=== PATIENT | female | born 1995 | race African-American/Black ===

== ENCOUNTER 2017-09-08 11:24 | Emergency (ER) | payer OTHER ==
[2017-09-08 11:43] VITALS: BP 147/72; PULSE 87; TEMP 97.6; BMI 24.1
--- NOTE | 2017-09-08 12:11 | PDOC ---
Attending Attestation - Resident Resident Name: KolbyEriberto - HPI HPI: 09/08/17 18:43 Pt presents to the ED complaining of facial droop that started yesterday. - Physicial Exam PE: 09/08/17 18:44 Agree with resident exam. Droop involves both left eye and left mouth, and is consistent with bells palsy. - Medical Decision Making 09/08/17 18:45 Pt presents to the ED complaining of facial droop consistent with bells palsy. Will treat with prednisone and acyclovir and discharge home.
--- NOTE | 2017-09-08 13:33 | PDOC ---
History of Present Illness - General Chief Complaint: CVA/TIA Stated Complaint: ALLERGIC RXN/ LT FACE NUMBNESS Time Seen by Provider: 09/08/17 11:52 - History of Present Illness Initial Comments: 09/08/17 13:27 22 yo F with no significant pmh who presents with left sided facial paralysis. Patient reports acute onset of L sided facial paralysis this AM. States that she is unable to close eye and raise left sided mouth. Reports aural fullness " pressure" sensation in left ear. Recently seen at PCP this past Monday and treated with ear drops. Ear progressively swollen and externally painful. Denies N/V, fevers/chills, ear discharge, lightheadedness, CARDOSO, GI complaints, dizziness, weakness, sensory changes, vision changes, SOB, cough, or upper resp complaints. States that she has not had these symptoms before. Denies recent traveling, tick bites, bug bites, camping, hiking. Past History - Past Medical History Allergies/Adverse Reactions: Allergies Allergy/AdvReac Type Severity Reaction Status Date / Time ciprofloxacin HCl AdvReac Intermediate Verified 09/08/17 11:40 [From Ciprodex] dexamethasone [From Ciprodex] AdvReac Intermediate Verified 09/08/17 11:40 Home Medications: Ambulatory Orders Polyvinyl Alcohol [Tears Again] 15 ml OP PRN PRN #1 drops 09/08/17 Prednisone [Deltasone] 20 mg PO TID 7 Days #21 tablet MDD 3 tab 09/08/17 Valacyclovir HCl [Valtrex -] 1,000 mg PO TID 7 Days #21 tablet MDD 3 tab COPD: No - Suicide/Smoking/Psychosocial Hx Smoking History: Never smoked Review of Systems - Review of Systems Comments:: 09/08/17 13:29 GENERAL/CONSTITUTIONAL: No fever or chills. No weakness. HEAD, EYES, EARS, NOSE AND THROAT: + L sided facial weakness, and L ear pain No change in vision. No ear discharge. No sore throat.- CARDIOVASCULAR: No chest pain or shortness of breath RESPIRATORY: No cough, wheezing, or hemoptysis. GASTROINTESTINAL: No nausea, vomiting, diarrhea or constipation. GENITOURINARY: No dysuria, frequency, or change in urination. MUSCULOSKELETAL: No joint or muscle swelling or pain. No neck or back pain. SKIN: No rash NEUROLOGIC: No headache, vertigo, loss of consciousness, or change in strength/ sensation. ENDOCRINE: No increased thirst. No abnormal weight change HEMATOLOGIC/LYMPHATIC: No anemia, easy bleeding, or history of blood clots. ALLERGIC/IMMUNOLOGIC: No hives or skin allergy. 1 *Physical Exam - Vital Signs Last Vital Signs Temp Pulse Resp BP Pulse Ox 97.6 F 87 19 147/72 100 09/08/17 11:40 09/08/17 11:40 09/08/17 11:40 09/08/17 11:40 09/08/17 11:40 - Physical Exam Comments: 09/08/17 13:29 GENERAL: Awake, alert, and fully oriented, in no acute distress HEAD:Left sided drooping of lateral oral commisure. No signs of trauma, normocephalic, atraumatic EYES: left sided ptosis present. PERRLA, EOMI, sclera anicteric, conjunctiva clear ENT: Swelling of left ear helix, fossa, external ear. Auricles normal inspection , hearing grossly normal, nares patent, oropharynx clear without exudates. Moist mucosa NECK: Normal ROM, supple, no lymphadenopathy, JVD, or masses LUNGS: No distress, speaks full sentences, clear to auscultation bilaterally HEART: Regular rate and rhythm, normal S1 and S2, no murmurs, rubs or gallops, peripheral pulses normal and equal bilaterally. ABDOMEN: Soft, nontender, normoactive bowel sounds. No guarding, no rebound. No masses EXTREMITIES : Normal inspection, Normal range of motion, no edema. No clubbing or cyanosis. NEUROLOGICAL: Left sided facial weakness. Normal sensation to pinprick. Cranial nerves II through XII grossly intact. Normal speech, normal gait, no focal sensorimotor deficits. Absent dysmetria on FTN. Normal HTS. Normal ELIEL. SKIN: Warm, Dry, normal turgor, no rashes or lesions noted. Medical Decision Making - Medical Decision Making 09/08/17 18:27 22 yo F with no significant pmh who presents with acute onset of L sided facial paralysis this AM. Unable to close left eye and raise left sided mouth. Reports aural fullness " pressure" sensation in left ear for 1 week. Recently evaluated at PCP this past Monday and treated with ear drops. Ear progressively swollen and externally painful. Denies N/V, fevers/chills, ear discharge, lightheadedness, CARDOSO, GI complaints, dizziness, weakness, sensory changes, vision changes, SOB, cough, or upper resp complaints. States that she has not had these symptoms before. Denies recent traveling, tick bites, bug bites, camping, hiking. Physical exam reveals left sided ptosis and left sided soft tissue swellign of ear with no visible vesicles in outer ear. No s/s of AOM. Absent neuro deficits. Patient presentation consistent with bells palsy. 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 CVA/TIA unlikely, pt is young with low risk factors and no evidence of focal neuro deficits. ED Course: 09/08/17 18:30 Sent Valacyclovir, Prednisone, and Polyvinyl tears to pharmacy. 09/08/17 18:33 Patient is stable and ready for discharge. Will f/u outpatient with PCP in 1 week. Discussed avoiding eye irritation and frequent lubrication with drops. *DC/Admit/Observation/Transfer Diagnosis at time of Disposition: Wise's palsy - Discharge Dispostion Disposition: HOME Condition at time of disposition: Stable Admit: No - Prescriptions Prescriptions: Polyvinyl Alcohol [Tears Again] 15 ml OP PRN PRN #1 drops PRN Reason: Pain Prednisone [Deltasone] 20 mg PO TID 7 Days #21 tablet MDD 3 tab Valacyclovir HCl [Valtrex -] 1,000 mg PO TID 7 Days #21 tablet MDD 3 tab - Referrals - Patient Instructions Printed Discharge Instructions: DI for Wise's Palsy, Wise's Palsy (Alternative Therapy) Additional Instructions: Please return to the emergency department with any new or worsening symptoms or concerns. Please take medication as prescribed. - Post Discharge Activity Forms/Work/School Notes: Back to Work - Attestations Physician Attestion: 09/08/17 13:32 I attest to the documentation in this note.
== END 2017-09-08 13:47 | disposition home or self-care (01) ==
LOC: JER 11:24
DX: G51.0 Bell's palsy (principal)
CPT/HCPCS: 99282-25

== ENCOUNTER 2019-06-09 20:59 | Emergency (ER) | payer OTHER ==
[2019-06-09 21:11] VITALS: TEMP 98.2; BMI 24.5
[2019-06-09] MEDS ORDERED: ACETAMINOPHEN 1000 MG/100 ML VIAL (NON FORMULARY) IVPB ONE (21:32)
[2019-06-09] MEDS ORDERED: SODIUM CHLORIDE 1,000 ML IV STA (21:32)
--- NOTE | 2019-06-09 21:32 | PDOC ---
History of Present Illness - General Chief Complaint: Vomiting/Diarrhea Stated Complaint: G.I.UPSET Time Seen by Provider: 06/09/19 21:32 History Source: Patient Exam Limitations: No Limitations - History of Present Illness Initial Comments: 23 year old female with PMH menorrhhagia presented to ED with mother for nausea , vomiting, diarrhea, generalized abdominal pain since this AM. Pt returned from a trip to [facility] x7 days ago. Pt denied blood in stool/ vomit/urine, dysuria, flank pain, chest pain, cough, shortness of breath, rhinorrhea, sore throat. Pt stated she has been unable to tolerate PO today, but she took Tylenol around 1300, ibuprofen before that, and zofran that she usually uses for her menorrhagia without relief of symptoms. ROS General: admitted to generalized weakness. denied fever, chills. HEENT: denied sore throat, rhinorrhea, ear pain. Cardiovascular: denied chest pain, palpitations, syncope, diaphoresis. Respiratory: denied shortness of breath, cough, sputum production, hemoptysis. Gastrointestinal: admitted to abdominal pain, nausea, vomiting, diarrhea. denied constipation, blood in stool. Genitourinary: denied dysuria, increased urinary frequency, hematuria, urinary incontinence, flank pain. Back: denied back pain. Musculoskeletal: denied joint pain, muscle pain, joint swelling. Neurological: denied headache, dizziness, numbness, tingling, weakness. Integumentary: denied rash, laceration, abrasion. Hematologic/Lymphatic: denied bruising or bleeding. PE Constitutional: Well-nourished, Well-developed, appearing stated age. HEENT: head is normocephalic, atraumatic. EOMI. PERRLA. no posterior pharyngeal erythema.no tonsillar swelling or exudates bilaterally. uvula midline. no peritonsillar swelling, tenderness or abscess. no jaw tenderness or misalignment. Neck: supple. Full ROM. Cardiovascular: regular heart rhythm. no murmurs. no pericardial friction rub. Respiratory: clear to auscultation bilaterally. no crackles, rhonchi or wheezing. no stridor. Gastrointestinal: soft, nontender. normal bowel sounds. no rebound, guarding, masses. Extremities: peripheral pulses intact. no lower extremity edema. Neurological: CN 2-12 grossly intact. moves all four extremities. Psych: awake, alert, oriented x3. follows commands. answers questions appropriately. Past History - Past Medical History Allergies/Adverse Reactions: Allergies Allergy/AdvReac Type Severity Reaction Status Date / Time ciprofloxacin HCl AdvReac Intermediate Verified 06/09/19 21:06 [From Ciprodex] dexamethasone [From Ciprodex] AdvReac Intermediate Verified 06/09/19 21:06 Home Medications: Ambulatory Orders Ondansetron [Zofran Odt -] 4 mg SL TID #9 od.tablet 06/09/19 COPD: No - Suicide/Smoking/Psychosocial Hx Smoking History: Never smoked Have you smoked in the past 12 months: No Hx Alcohol Use: Yes Drug/Substance Use Hx: No *Physical Exam - Vital Signs Last Vital Signs Temp Pulse Resp BP Pulse Ox 98.2 F 117 H 18 119/62 96 06/09/19 21:06 06/09/19 21:06 06/09/19 21:06 06/09/19 21:06 06/09/19 21:06 ED Treatment Course - LABORATORY CBC & Chemistry Diagram: 06/09/19 21:30 06/09/19 21:30 Medical Decision Making - Medical Decision Making 23 year old female with above PMH presented to ED for nausea, vomiting, diarrhea , generalized weakness, generalized abdominal pain. Initial Vital Signs Temp Pulse Resp BP Pulse Ox 98.2 F 117 H 18 119/62 96 06/09/19 21:06 06/09/19 21:06 06/09/19 21:06 06/09/19 21:06 06/09/19 21:06 Afebrile. Tachycardic. No tachypnea. No hypotension. No hypoxia on room air. Labs ordered: CBC, CMP, TSH, lipase, serum , Coags Imaging ordered: none Medications ordered: tylenol IV, reglan 10 mg IV once, normal saline bolus 1000 cc once 06/09/19 23:13 CBC WBC 11.3 K/mm3 (4.0-10.0) H 06/09/19 21:30 RBC 4.32 M/mm3 (3.60-5.2) 06/09/19 21:30 Hgb 13.3 GM/dL (10.7-15.3) 06/09/19 21:30 Hct 40.2 % (32.4-45.2) 06/09/19 21:30 MCV 93.1 fl (80-96) 06/09/19 21:30 MCH 30.8 pg (25.7-33.7) 06/09/19 21:30 MCHC 33.0 g/dl (32.0-36.0) 06/09/19 21:30 RDW 12.7 % (11.6-15.6) 06/09/19 21:30 Plt Count 290 K/MM3 (134-434) 06/09/19 21:30 MPV 6.9 fl (7.5-11.1) L 06/09/19 21:30 Absolute Neuts (auto) 9.9 K/mm3 (1.5-8.0) H 06/09/19 21:30 Neutrophils % 87.3 % (42.8-82.8) H 06/09/19 21:30 Lymphocytes % 4.5 % (8-40) L 06/09/19 21:30 Monocytes % 8.1 % (3.8-10.2) 06/09/19 21:30 Eosinophils % 0.0 % (0-4.5) 06/09/19 21:30 Basophils % 0.1 % (0-2.0) 06/09/19 21:30 Nucleated RBC % 0 % (0-0) 06/09/19 21:30 Mild leukocytosis with left shift. No anemia. No thrombocytosis. CMP Sodium 139 mmol/L (136-145) 06/09/19 21:30 Potassium 3.6 mmol/L (3.5-5.1) 06/09/19 21:30 Chloride 106 mmol/L (98-107) 06/09/19 21:30 Carbon Dioxide 23 mmol/L (21-32) 06/09/19 21:30 Anion Gap 10 MMOL/L (8-16) 06/09/19 21:30 BUN 12.3 mg/dL (7-18) 06/09/19 21:30 Creatinine 1.0 mg/dL (0.55-1.3) 06/09/19 21:30 Est GFR (CKD-EPI)AfAm 90.68 06/09/19 21:30 Est GFR (CKD-EPI)NonAf 78.24 06/09/19 21:30 Random Glucose 140 mg/dL (74-106) H 06/09/19 21:30 Calcium 8.7 mg/dL (8.5-10.1) 06/09/19 21:30 Magnesium 1.6 mg/dL (1.8-2.4) L 06/09/19 21:30 Total Bilirubin 0.3 mg/dL (0.2-1) 06/09/19 21:30 AST 16 U/L (15-37) 06/09/19 21:30 ALT 18 U/L (13-61) 06/09/19 21:30 Alkaline Phosphatase 73 U/L (45-117) 06/09/19 21:30 Total Protein 7.4 g/dl (6.4-8.2) 06/09/19: Albumin 3.6 g/dl (3.4-5.0) 06/09/19 21: Lipase 110 U/L (73-393) 06/09/19 21:30 TSH 0.46 uIU/ml (0.358-3.74) 06/09/19 21:30 Serum , Qual Negative 06/09/19 21:30 Mild low magnesium. No GIDEON. No hypokalemia. TSH wnl. No transaminitis. TSH wnl. Serum testing negative. Urine Test Results Urine Color Yellow 06/09/19 23:00 Urine Appearance Clear 06/09/19 23:00 Urine pH 5.0 (5.0-8.0) 06/09/19 23:00 Ur Specific [place] 1.027 (1.010-1.035) 06/09/19 23:00 Urine Protein 1+ (NEGATIVE) H 06/09/19 23:00 Urine Glucose (UA) Negative (NEGATIVE) 06/09/19 23:00 Urine Ketones Negative (NEGATIVE) 06/09/19 23:00 Urine Blood 3+ (NEGATIVE) H 06/09/19 23:00 Urine Nitrite Negative (NEGATIVE) 06/09/19 23:00 Urine Bilirubin Negative (NEGATIVE) 06/09/19 23:00 Ur Leukocyte Esterase Negative (NEGATIVE) 06/09/19 23:00 Negative for UTI. Hematuria - likely contaminated from menstrual period. Medications ordered: Magnesium 800 mg PO once *DC/Admit/Observation/Transfer Diagnosis at time of Disposition: Nausea vomiting and diarrhea - Discharge Dispostion Disposition: HOME Condition at time of disposition: Improved Decision to Admit order: No - Prescriptions Prescriptions: Ondansetron [Zofran Odt -] 4 mg SL TID #9 od.tablet - Referrals - Patient Instructions Printed Discharge Instructions: DI for Diarrhea and Traveler's Diarrhea -- Adult Additional Instructions: Your lab work showed your magnesium is low - have this value rechecked by your primary care doctor within 7 days. The rest of your lab work was normal. I have sent a prescription to your pharmacy for Zofran, an anti-nausea medication, take as advised on label. Follow up with your primary care doctor within 3 days. Your care is not complete until you follow up. Take Tylenol over the counter for pain/body aches/fever. Take as advised on label. Return to the Emergency Department for increasing pain, chest pain, shortness of breath, fever>102F, vomiting blood, blood in stool, lightheadedness or any other new, worsening or concerning symptoms. - Post Discharge Activity Forms/Work/School Notes: Back to Work
[2019-06-09] MEDS ORDERED: METOCLOPRAMIDE HCL INJECTION 10 MG/2 ML VIAL IVPUSH ONE (21:45)
[2019-06-09] MEDS ORDERED: ACETAMINOPHEN INJECTION 100 ML IVPB ONE (21:46)
[2019-06-09] MEDS ORDERED: METOCLOPRAMIDE HCL INJECTION 10 MG/2 ML VIAL ONE (21:46)
--- NOTE | 2019-06-09 21:54 | PDOC ---
Attending Attestation - Resident Resident Name: Saroj,Belén - ED Attending Attestation I have performed the following: I have examined & evaluated the patient, The case was reviewed & discussed with the resident, I agree w/resident's findings & plan, Exceptions are as noted - HPI HPI: 06/09/19 21:52 23 yo female presents with nausea, vomiting and diarrhea. She states that with her menstrual cycle, she very often has cramping and diarrhea, but today's diarrhea is much more frequent -she returned from a trip to [facility] and [facility] 1 week ago She has no sick contacts - Physicial Exam PE: 06/09/19 22:51 23-year-old female presents with pelvic cramping, vaginal bleeding and no stools. Head normocephalic/atraumatic. Neck supple Lungs are clear to auscultation. CVS regular rate and rhythm S1, S2 Abdomen. No rebound, no guarding. No flank pain. Skin warm and dry. Neuro alert and oriented 3, ambulatory - Medical Decision Making 06/09/19 22:52 benign abd exam CBC sl leukocytosis Chemistries showed glucose of 140. Patient received IV Tylenol and IV fluids 06/09/19 23:27 06/09/19 23:28 benign abd exam negative test pt feels much better and wants to go home d/c home imp menstrual cramps/diarrhea
[2019-06-09 21:55] LABS: BASO % 0.1 % (0-2.0); HEMATOCRIT 40.2 % (32.4-45.2); HEMOGLOBIN 13.3 GM/dL (10.7-15.3); LYMPH % 4.5 % (8-40); MCH 30.8 pg (25.7-33.7); MEAN CELL VOLUME 93.1 fl (80-96); MEAN PLT VOLUME 6.9 fl (7.5-11.1); MONO % 8.1 % (3.8-10.2); NEUT % 87.3 % (42.8-82.8); PLATELET COUNT 290 K/MM3 (134-434); RBC 4.32 M/mm3 (3.60-5.2); RDW 12.7 % (11.6-15.6); WHITE BLOOD COUNT 11.3 K/mm3 (4.0-10.0)
[2019-06-09 22:27] LABS: INR 1.17 (0.83-1.09); PROTHROMBIN TIME (PATIENT) 13.8 SEC (9.7-13.0)
[2019-06-09 22:37] LABS: ALBUMIN 3.6 g/dl (3.4-5.0); BILIRUBIN,TOTAL 0.3 mg/dL (0.2-1); BLOOD UREA NITROGEN 12.3 mg/dL (7-18); CALCIUM 8.7 mg/dL (8.5-10.1); POTASSIUM 3.6 mmol/L (3.5-5.1); TOT PROT 7.4 g/dl (6.4-8.2)
[2019-06-09 23:10] LABS: HYALINE CASTS 45 /lpf (0-8); URINE APPEARANCE CLEAR; URINE BACTERIA 12.3 /hpf (NEGATIVE); URINE BILIRUBIN NEGATIVE (NEGATIVE); URINE COLOR YELLOW; URINE GLUCOSE (UA) NEGATIVE (NEGATIVE); URINE KETONE NEGATIVE (NEGATIVE); URINE LEUK ESTERASE NEGATIVE (NEGATIVE); URINE NITRITE NEGATIVE (NEGATIVE); URINE PROTEIN 1+ (NEGATIVE); URINE RBC 31 /hpf (0-4); URINE UROBILINOGEN 0.2 mg/dL (0.2-1.0); URINE WBC 7 /hpf (0-5)
[2019-06-09] MEDS ORDERED: MAGNESIUM OXIDE 400 MG TABLET (FP) PO ONE (23:15)
[2019-06-09] MEDS ORDERED: MAGNESIUM OXIDE 400 MG TABLET (FP) ONE (23:25)
[2019-06-09 23:30] VITALS: BP 119/75; PULSE 100
--- NOTE | 2019-06-10 14:51 | EKG ---
Test Reason : Blood Pressure : / mmHG Vent. Rate : 096 BPM Atrial Rate : 096 BPM P-R Int : 132 ms QRS Dur : 084 ms QT Int : 370 ms P-R-T Axes : 063 070 049 degrees QTc Int : 467 ms NORMAL SINUS RHYTHM POSSIBLE LEFT ATRIAL ENLARGEMENT BORDERLINE ECG NO PREVIOUS ECGS AVAILABLE Confirmed by RICO KIM MD ([id number]) on 06/10/2019 2:51:15 PM Referred By: Confirmed By:RICO KIM MD
== END 2019-06-09 23:31 | disposition home or self-care (01) ==
LOC: JER 20:59
PROC: 3E033NZ Introduction of Analgesics, Hypnotics, Sedatives into Peripheral Vein, Percutaneous Approach (ICD-10-PCS; principal; 2019-06-09)
PROC: 3E033GC Introduction of Other Therapeutic Substance into Peripheral Vein, Percutaneous Approach (ICD-10-PCS; 2019-06-09)
DX: N94.6 Dysmenorrhea, unspecified (principal); E83.42 Hypomagnesemia
CPT/HCPCS: 36415; 80053; 81003; 83690; 83735; 84443; 84703; 85025; 85610; 85730; 93005; 93010; 99283-25; J0131; J7030

== ENCOUNTER 2019-06-11 14:10 | Emergency (ER) | payer OTHER ==
[2019-06-11 14:15] VITALS: TEMP 98.3; BMI 24.5
[2019-06-11] MEDS ORDERED: SODIUM CHLORIDE 1,000 ML IV STA (15:19)
[2019-06-11] MEDS ORDERED: morphine CARPU-JECT 4 MG/1 ML DISP.SYRIN IVPUSH ONE (15:19)
[2019-06-11] MEDS ORDERED: morphine SULFATE 4 MG/ML VIAL ONE (15:46)
--- NOTE | 2019-06-11 15:49 | PDOC ---
*Physical Exam - Vital Signs Last Vital Signs Temp Pulse Resp BP Pulse Ox 98.3 F 111 H 14 119/73 96 06/11/19 14:13 06/11/19 14:13 06/11/19 14:13 06/11/19 14:13 06/11/19 14:13 ED Treatment Course - LABORATORY CBC & Chemistry Diagram: 06/11/19 15:40 06/11/19 15:40 Medical Decision Making - Medical Decision Making 06/11/19 15:49 Ms Palacios is a 23 yo F presenting with a complaint of nausea, vomiting, diarrhea , generalized abdominal pain S/p recent trip to [facility] 2 weeks ago Stool non bloody Fever yesterday Pt seen by Midlevel Provider under my direct supervision Ancillary studies pending Signed out to Dr. Montiel I agree with plan as outlined by Midlevel Provider 06/11/19 16:31 *DC/Admit/Observation/Transfer Diagnosis at time of Disposition: Gastroenteritis - Discharge Dispostion Disposition: HOME Condition at time of disposition: Improved - Referrals - Patient Instructions Printed Discharge Instructions: DI for Viral Gastroenteritis -- Adult Additional Instructions: Thank you for choosing [facility]. It was a pleasure taking care of you. Drink at least 2-3L of water to stay hydrated Eat light food like bananas, rice, applesauce, toast, plain yogurt until feeling better If still feeling like having several episodes of diarrhea, can take Imodium (do not take for more than 2 days) Follow-up with your doctor in 2 days Return to the Emergency Department if your symptoms worsen or persist, you have fever, shortness of breath, chest pain, severe abdominal pain, vomiting, unable to keep down liquids or other concerning symptoms. - Post Discharge Activity
[2019-06-11 16:07] LABS: BASO % 0.3 % (0-2.0); EOS % 0.1 % (0-4.5); HEMATOCRIT 43.2 % (32.4-45.2); HEMOGLOBIN 14.6 GM/dL (10.7-15.3); LYMPH % 25.5 % (8-40); MCHC 33.8 g/dl (32.0-36.0); MEAN CELL VOLUME 91.6 fl (80-96); MEAN PLT VOLUME 7.1 fl (7.5-11.1); MONO % 21.2 % (3.8-10.2); NEUT % 52.9 % (42.8-82.8); PLATELET COUNT 325 K/MM3 (134-434); RBC 4.72 M/mm3 (3.60-5.2); RDW 12.6 % (11.6-15.6); WHITE BLOOD COUNT 4.7 K/mm3 (4.0-10.0)
[2019-06-11 16:34] LABS: ALBUMIN 3.7 g/dl (3.4-5.0); ALK PHOS 68 U/L (45-117); ANION GAP 6 MMOL/L (8-16); BILIRUBIN,TOTAL 0.2 mg/dL (0.2-1); BLOOD UREA NITROGEN 17.5 mg/dL (7-18); CALCIUM 9.4 mg/dL (8.5-10.1); CHLORIDE 100 mmol/L (98-107); CO2 26 mmol/L (21-32); CREATININE 1.3 mg/dL (0.55-1.3); GLUCOSE,RANDOM 104 mg/dL (74-106); LIPASE 90 U/L (73-393); MAGNESIUM 2.3 mg/dL (1.8-2.4); SGOT/AST 20 U/L (15-37); SGPT/ALT 26 U/L (13-61); SODIUM 132 mmol/L (136-145); TOT PROT 8.2 g/dl (6.4-8.2)
[2019-06-11 19:23] LABS: PLATELET ESTIMATE NORMAL
--- NOTE | 2019-06-11 19:35 | PDOC ---
History of Present Illness - General Chief Complaint: Pain, Acute Stated Complaint: ABD PAIN / VOMITING Time Seen by Provider: 06/11/19 15:06 History Source: Patient Exam Limitations: No Limitations Past History - Past Medical History Allergies/Adverse Reactions: Allergies Allergy/AdvReac Type Severity Reaction Status Date / Time ciprofloxacin HCl AdvReac Intermediate Verified 06/11/19 14:15 [From Ciprodex] dexamethasone [From Ciprodex] AdvReac Intermediate Verified 06/11/19 14:15 Home Medications: Ambulatory Orders Ondansetron [Zofran Odt -] 4 mg SL TID #9 od.tablet 06/09/19 COPD: No - Suicide/Smoking/Psychosocial Hx Smoking History: Never smoked Have you smoked in the past 12 months: No Hx Alcohol Use: No Drug/Substance Use Hx: No *Physical Exam - Vital Signs Last Vital Signs Temp Pulse Resp BP Pulse Ox 98.3 F 111 H 14 119/73 96 06/11/19 14:13 06/11/19 14:13 06/11/19 14:13 06/11/19 14:13 06/11/19 14:13 - Physical Exam General Appearance: No: Apparent Distress Respiratory/Chest: positive: Lungs Clear, Normal Breath Sounds. negative: Respiratory Distress Cardiovascular: positive: Regular Rhythm, Regular Rate, S1, S2. negative: Murmur Gastrointestinal/Abdominal: positive: Tender (RUQ region), Soft. negative: Distended, Guarding, Rebound, Hernia Musculoskeletal: negative: CVA Tenderness Neurologic: positive: Alert, Normal Mood/Affect ED Treatment Course - LABORATORY CBC & Chemistry Diagram: 06/11/19 15:40 06/11/19 15:40 - ADDITIONAL ORDERS Additional order review: Laboratory Results 06/11/19 06/11/19 06/11/19 18:21 15:40 15:40 WBC 4.7 RBC 4.72 Hgb 14.6 Hct 43.2 MCV 91.6 MCH 31.0 MCHC 33.8 RDW 12.6 Plt Count 325 MPV 7.1 L Absolute Neuts (auto) 2.5 Total Counted 100 Neutrophils % 52.9 D Neutrophils % (Manual) 42.0 L Band Neutrophils % 10.0 Lymphocytes % 25.5 D Lymphocytes % (Manual) 26.0 Monocytes % 21.2 H D Monocytes % (Manual) 21 H Eosinophils % 0.1 D Eosinophils % (Manual) 0.0 Basophils % 0.3 Basophils % (Manual) 0.0 Myelocytes % (Man) 0 Promyelocytes % (Man) 0 Blast Cells % (Manual) 0 Nucleated RBC % 0 Metamyelocytes 0 Platelet Estimate Normal Sodium 132 L Potassium 4.0 Chloride 100 Carbon Dioxide 26 Anion Gap 6 L BUN 17.5 Creatinine 1.3 Est GFR (CKD-EPI)AfAm 66.03 Est GFR (CKD-EPI)NonAf 56.97 Random Glucose 104 Calcium 9.4 Magnesium 2.3 Total Bilirubin 0.2 AST 20 ALT 26 Alkaline Phosphatase 68 Total Protein 8.2 Albumin 3.7 Lipase 90 Serum , Qual Urine HCG, Qual Cancelled 06/11/19 14:00 WBC RBC Hgb Hct MCV MCH MCHC RDW Plt Count MPV Absolute Neuts (auto) Total Counted Neutrophils % Neutrophils % (Manual) Band Neutrophils % Lymphocytes % Lymphocytes % (Manual) Monocytes % Monocytes % (Manual) Eosinophils % Eosinophils % (Manual) Basophils % Basophils % (Manual) Myelocytes % (Man) Promyelocytes % (Man) Blast Cells % (Manual) Nucleated RBC % Metamyelocytes Platelet Estimate Sodium Potassium Chloride Carbon Dioxide Anion Gap BUN Creatinine Est GFR (CKD-EPI)AfAm Est GFR (CKD-EPI)NonAf Random Glucose Calcium Magnesium Total Bilirubin AST ALT Alkaline Phosphatase Total Protein Albumin Lipase Serum , Qual Negative Urine HCG, Qual 06/11/19 15:40 RBC 4.72 MCV 91.6 MCHC 33.8 RDW 12.6 MPV 7.1 L Neutrophils % 52.9 D Lymphocytes % 25.5 D Monocytes % 21.2 H D Eosinophils % 0.1 D Basophils % 0.3 - RADIOLOGY Radiology Studies Ordered: Category Date Time Status ABDOMEN & PELVIS CT WITH CONTR [CT] Stat CT Scan 06/11/19 18:45 Completed ABDOMEN US -LIMITED [US] Stat Ultrasound 06/11/19 15:20 Completed - Medications Given in the ED: ED Medications Discontinued Medications Generic Name Dose Route Start Last Admin Trade Name Freq PRN Reason Stop Dose Admin Sodium Chloride 1,000 mls @ 1,000 mls/hr 06/11/19 15:19 06/11/19 15:47 Normal Saline - IV 06/11/19 16:18 1,000 mls/hr ASDIR STA Administration Morphine Sulfate 4 mg 06/11/19 15:19 06/11/19 15:47 Morphine Injection - IVPUSH 06/11/19 15:20 4 mg ONCE ONE Administration Medical Decision Making - Medical Decision Making 23 y/o F with no sig pmh presents with generalized abdominal pain, NBNB emesis and watery diarrhea x 3 days. Patient recently traveled from [facility] [place] last week. Was seen in ED 2 days ago and discharged, but patient states unable to keep anything down and Zofran not helping. States had fever of 101.6 yesterday but none today. Did not take any antipyretics today. Denies sob , cp, urinary complaints, bloody stools. Denies prior abd surgeries. Labs reviewed and unremarkable Given IVF; patient did not want nausea meds RUQ sono done given tenderness along site which was equivocal (slight GB wall thickening noted) CT A/P done with no acute findings noted Stool culture sent Not suspicious for infectious diarrhea Likely viral gastroenteritis Patient feeling better on reassessment Stable for d/c 06/11/19 19:31 *DC/Admit/Observation/Transfer Diagnosis at time of Disposition: Gastroenteritis - Discharge Dispostion Disposition: HOME Condition at time of disposition: Improved Decision to Admit order: No - Referrals - Patient Instructions Printed Discharge Instructions: DI for Viral Gastroenteritis -- Adult Additional Instructions: Thank you for choosing [facility]. It was a pleasure taking care of you. Drink at least 2-3L of water to stay hydrated Eat light food like bananas, rice, applesauce, toast, plain yogurt until feeling better If still feeling like having several episodes of diarrhea, can take Imodium (do not take for more than 2 days) Follow-up with your doctor in 2 days Return to the Emergency Department if your symptoms worsen or persist, you have fever, shortness of breath, chest pain, severe abdominal pain, vomiting, unable to keep down liquids or other concerning symptoms. - Post Discharge Activity
[2019-06-11 19:53] VITALS: BP 111/63; PULSE 89
== END 2019-06-11 19:53 | disposition home or self-care (01) ==
LOC: JER 14:10
PROC: 3E033NZ Introduction of Analgesics, Hypnotics, Sedatives into Peripheral Vein, Percutaneous Approach (ICD-10-PCS; principal; 2019-06-11)
PROC: 3E0337Z Introduction of Electrolytic and Water Balance Substance into Peripheral Vein, Percutaneous Approach (ICD-10-PCS; 2019-06-11)
DX: K52.9 Noninfective gastroenteritis and colitis, unspecified (principal)
CPT/HCPCS: 36415; 74177-TC; 76705-TC; 80053; 83690; 83735; 84702; 84703; 85025; 87045; 87046; 87186; 87205; 99283-25; J7030